=== PATIENT | female | born 1995 | race Caucasian/White ===

== ENCOUNTER 2018-04-17 20:58 | Emergency (ER) | payer MEDICAID ==
[2018-04-17] MEDS ORDERED: NORMAL SALINE 1000 ML 1,000 ML IV ONE ×2 (22:15→23:43)
[2018-04-17 22:42] LABS: ABSOLUTE LYMPHOCYTES (AUTO) 0.9 10^3/uL (0.5-4.7); ABSOLUTE MONOCYTES (AUTO) 0.3 10^3/uL (0.1-1.4); ABSOLUTE NEUT (AUTO) 3.9 10^3/uL (1.7-8.2); BASOPHILS % (AUTO) 0.5 % (0-2); EOSINOPHILS % (AUTO) 0.2 % (0-6); HEMATOCRIT 40.6 % (36.0-47.0); HEMOGLOBIN 13.7 g/dL (12.0-15.5); LYMPHOCYTES % (AUTO) 17.9 % (13-45); MEAN CORPUSCULAR HEMOGLOBIN 26.6 pg (27.0-33.4); MEAN CORPUSCULAR HGB CONC 33.8 g/dL (32.0-36.0); MEAN CORPUSCULAR VOLUME 79 fl (80-97); MONOCYTES % (AUTO) 5.6 % (3-13); PLATELET COUNT 159 10^3/uL (150-450); RED BLOOD COUNT 5.16 10^6/uL (3.72-5.28); RED CELL DISTRIBUTION WIDTH 14.5 % (11.5-14.0); SEGMENTED NEUTROPHILS % (AUTO) 75.8 % (42-78); TOTAL CELLS COUNTED % (AUTO) 100 %; VENOUS BLOOD BASE EXCESS -3.5 mmol/L; VENOUS BLOOD HCO3 21.7 mmol/L (20-32); VENOUS BLOOD PCO2 39.8 mmHg (35-63); VENOUS BLOOD PH 7.36 (7.30-7.42); WHITE BLOOD COUNT 5.1 10^3/uL (4.0-10.5)
[2018-04-17] MEDS ORDERED: ONDANSETRON HCL INJ/PF 4 MG/2 ML SDV IV ONE (22:50)
--- NOTE | 2018-04-17 22:50 | ER Document Report ---
ED General - General Chief Complaint: High Blood Sugar Stated Complaint: BLOOD SUGAR PROBLEM Time Seen by Provider: 04/17/18 22:14 TRAVEL OUTSIDE OF THE [place] IN LAST 30 DAYS: No - HPI Patient complains to provider of: Elevated blood sugars Notes: Patient coming in for evaluation of elevated blood sugars concerned about DKA. Patient with type I diabetic most of her life currently has insulin pump. Patient states she is change her site in the last 48 hours twice. Patient sta mal that her unit automatically boluses are patient states feeling slightly nauseous also has issues with dental caries in the past. Patient states no vomiting no diarrhea no recent antibiotics. Patient does not have any primary care here in [place] is that she recently moved. Patient otherwise looks to be nontoxic upon my evaluation. - Related Data Allergies/Adverse Reactions: No Known Allergies Allergy (Unverified 04/17/18 21:02) Past Medical History - Social History Smoking Status: Unknown if Ever Smoked Family History: Reviewed & Not Pertinent Endocrine Medical History: Reports: Hx Diabetes Mellitus Type 1 Review of Systems - Review of Systems Constitutional: No symptoms reported EENT: No symptoms reported Cardiovascular: No symptoms reported Respiratory: No symptoms reported Gastrointestinal: Nausea - Elevated blood sugar Genitourinary: No symptoms reported Female Genitourinary: No symptoms reported Musculoskeletal: No symptoms reported Skin: No symptoms reported Hematologic/Lymphatic: No symptoms reported Neurological/Psychological: No symptoms reported -: Yes All other systems reviewed and negative Physical Exam - Vital signs Vitals: Temp Pulse Resp BP Pulse Ox 100.0 F 136 H 16 123/71 98 04/17/18 21:28 04/17/18 21:28 04/17/18 21:28 04/17/18 21:28 04/17/18 21:28 Interpretation: Normal - General General appearance: Appears well, Alert - HEENT Head: Normocephalic, Atraumatic Eyes: Normal Conjunctiva: Normal Cornea: Normal Pupils: PERRL Ears: Normal External canal: Normal Tympanic membrane: Normal Sinus: Normal Pharynx: Normal Neck: Normal Notes: Patient with gingival cellulitis of tooth #17 with a dental caries - Respiratory Respiratory status: No respiratory distress Chest status: Nontender Breath sounds: Normal Chest palpation: Normal - Cardiovascular Rhythm: Regular Heart sounds: Normal auscultation Murmur: No - Abdominal Inspection: Normal Distension: No distension Bowel sounds: Normal Tenderness: Nontender Organomegaly: No organomegaly - Back Back: Normal, Nontender - Extremities General upper extremity: Normal inspection, Nontender, Normal color, Normal ROM, Normal temperature General lower extremity: Normal inspection, Nontender, Normal color, Normal ROM, Normal temperature, Normal weight bearing. No: Shonda's sign - Neurological Neuro grossly intact: Yes Cognition: Normal Orientation: AAOx4 [place] Coma Scale Eye Opening: Spontaneous [place] Coma Scale Verbal: Oriented [place] Coma Scale Motor: Obeys Commands [place] Coma Scale Total: 15 Speech: Normal Motor strength normal: LUE, RUE, LLE, RLE Sensory: Normal - Psychological Associated symptoms: Normal affect, Normal mood - Skin Skin Temperature: Warm Skin Moisture: Dry Skin Color: Normal Course - Re-evaluation Re-evalutation: 04/17/18 22:50 Vital signs show tachycardia. Physical examination is not related event. Patient otherwise looks to be no obvious distress. Did evaluate the site of the patient's diabetic insulin pump which looks to be well-healed no signs of infection. Will check basic laboratory studies 04/18/18 01:13 Patient tachycardia improved with IV fluids laboratory studies shows signs of dehydration and possible UTI. Examination of the patient's oral cavity also reveals some developing gingival cellulitis no abscess formation. Because tachycardia and recent travel initially a d-dimer was performed which did come back elevated. CTA returned negative for PE. Patient sugars are now normalized. She will be started on Keflex for urine and for her dental disease patient will be given dental resources to follow-up with. Patient will be discharged home. - Vital Signs Vital signs: Temp Pulse Resp BP Pulse Ox 100.1 F 136 H 21 H 131/81 H 100 04/17/18 23:40 04/17/18 21:28 04/18/18 01:01 04/18/18 01:00 04/18/18 01:01 - Laboratory Result Diagrams: 04/17/18 22:33 04/17/18 22:33 Laboratory results interpreted by me: 04/17/18 04/17/18 04/17/18 22:24 22:33 22:33 MCV 79 L MCH 26.6 L RDW 14.5 H D-Dimer Creatinine 0.46 L Glucose 234 H POC Glucose 239 H Urine Protein Urine Glucose (UA) Urine Ketones Ur Leukocyte Esterase Urine Ascorbic Acid 04/17/18 04/17/18 04/18/18 22:33 22:55 00:36 MCV MCH RDW D-Dimer 0.99 H Creatinine Glucose POC Glucose 154 H Urine Protein 100 H Urine Glucose (UA) >=500 H Urine Ketones 80 H Ur Leukocyte Esterase LARGE H Urine Ascorbic Acid 40 H Discharge - Discharge Clinical Impression: Diabetes type I, Tachycardia, Dehydration, UTI (urinary tract infection), Dental caries Condition: Good Instructions: Cephalexin ([facility]), Dentist, Dental Infection or Abscess ([facility]), Diabetes ([facility]), Family Physicians / Practices, Urinary Tract Infection ([facility]) Additional Instructions: Your laboratory studies show signs of possible urinary tract infection along with a dental infection. I will highly recommend that you follow-up along the primary care physicians listed as at being new to the area you would need a good family doctor to also help control your diabetes and also set up follow-up with investigator. I would also recommend following up with the dentist provided the antibiotic that we will give you treat urinary tract infection will also help with your dental infection. Would recommend rinsing after each meal with water or Listerine return to ER symptoms worsen follow-up with primary care physician. Prescriptions: Cephalexin Monohydrate [Keflex 500 mg Capsule] 500 mg PO Q6H 10 Days capsule Ondansetron HCl [Zofran 4 mg Tablet] 1 - 2 tab PO Q6 #30 tablet Forms: Return to Work
[2018-04-17 22:57] LABS: ALANINE AMINOTRANSFERASE 18 U/L (9-52); ALBUMIN 4.2 g/dL (3.5-5.0); ALKALINE PHOSPHATASE 118 U/L (38-126); ANION GAP 15 (5-19); ASPARTATE AMINO TRANSFERASE 17 U/L (14-36); BILIRUBIN,DIRECT 0.1 mg/dL (0.0-0.4); BILIRUBIN,TOTAL 0.5 mg/dL (0.2-1.3); BLOOD UREA NITROGEN 9 mg/dL (7-20); CALCIUM 9.3 mg/dL (8.4-10.2); CARBON DIOXIDE 22 mmol/L (22-30); CHLORIDE 101 mmol/L (98-107); GLUCOSE 234 mg/dL (75-110); LIPASE 29.9 U/L (23-300); POTASSIUM 3.9 mmol/L (3.6-5.0); SODIUM 137.9 mmol/L (137-145); TOTAL PROTEIN 7.4 g/dL (6.3-8.2)
[2018-04-17 23:37] LABS: A TYPE INFLUENZA AG NEGATIVE (NEGATIVE); APPEARANCE,URINE SLIGHTLY-CLOUDY; B INFLUENZA AG NEGATIVE (NEGATIVE); BILIRUBIN,URINE NEGATIVE (NEGATIVE); COLOR,URINE YELLOW; GLUCOSE, URINE >=500 mg/dL (NEGATIVE); KETONES,URINE 80 mg/dL (NEGATIVE); LEUKOCYTE ESTERASE,URINE LARGE (NEGATIVE); NITRITE,URINE NEGATIVE (NEGATIVE); PROTEIN,URINE 100 mg/dL (NEGATIVE); URINE SPECIFIC GRAVITY 1.036; UROBILINOGEN,URINE NEGATIVE mg/dL (<2.0)
[2018-04-17] MEDS ORDERED: CEFTRIAXONE 1 GM/D5W RTU 1 GM/50 ML RTUPB IV ONE (23:53)
--- NOTE | 2018-04-18 00:55 | RADIOLOGY REPORT (SQ) ---
EXAM DESCRIPTION: CT CHEST ANGIOGRAPHY WITHOUT THEN WITH IV CONTRAST COMPLETED DATE/TME: 04/18/2018 00:00 CLINICAL HISTORY: 22 years, Female, tachy elevated d dimer COMPARISON: None. TECHNIQUE: Axial images through the chest were performed after the administration of intravenous contrast using a pulmonary embolus protocol. MIPS were performed. This exam was performed according to our departmental dose-optimization program which includes use of Automated Exposure Control, adjustment of the mA and/or kV according to patient size and/or use of iterative reconstruction technique. FINDINGS: No pulmonary embolus is identified. Normal caliber aorta without dissection. No pericardial effusion. Cardiac chambers are normal in size. No pleural effusion. No focal lung consolidation. No pneumothorax. Patent central airway. Soft tissues are unremarkable. No acute osseous findings. No acute abnormality within the visualized upper abdomen. IMPRESSION: No pulmonary embolus.
[2018-04-18 02:23] VITALS: BP 116/77
--- NOTE | 2018-04-18 22:19 | EKG REPORT ---
SEVERITY:- OTHERWISE NORMAL ECG - SINUS TACHYCARDIA : Confirmed by: Dutch Brown 18-Apr-2018 22:18:41
== END 2018-04-18 02:00 | disposition home or self-care (01) ==
LOC: ER 20:58
DX: E10.65 Type 1 diabetes mellitus with hyperglycemia (principal); Z96.41 Presence of insulin pump (external) (internal); K02.9 Dental caries, unspecified; K12.2 Cellulitis and abscess of mouth; N39.0 Urinary tract infection, site not specified; E86.0 Dehydration; R11.0 Nausea; R00.0 Tachycardia, unspecified; R74.8 Abnormal levels of other serum enzymes
CPT/HCPCS: 93005; 99285; 96361; 96375; 96365; 36415; 82962; 84702; 83690; 85025; 80053; 81001; 85379; 82803; 87804; 71275; 93010; J2405; J7030 ×2; J0696

== ENCOUNTER → 2018-08-14 | Outpatient (CLI) | payer MEDICAID ==
[2018-08-14 15:27] LABS: ABSOLUTE EOSINOPHILS # (AUTO) 0.1 10^3/uL (0.0-0.6); ABSOLUTE LYMPHOCYTES (AUTO) 2.1 10^3/uL (0.5-4.7); ABSOLUTE MONOCYTES (AUTO) 0.3 10^3/uL (0.1-1.4); ABSOLUTE NEUT (AUTO) 2.5 10^3/uL (1.7-8.2); BASOPHILS % (AUTO) 0.6 % (0-2); EOSINOPHILS % (AUTO) 1.4 % (0-6); HEMATOCRIT 39.7 % (36.0-47.0); HEMOGLOBIN 13.3 g/dL (12.0-15.5); MEAN CORPUSCULAR HEMOGLOBIN 26.4 pg (27.0-33.4); MEAN CORPUSCULAR HGB CONC 33.5 g/dL (32.0-36.0); MEAN CORPUSCULAR VOLUME 79 fl (80-97); MONOCYTES % (AUTO) 6.5 % (3-13); PLATELET COUNT 178 10^3/uL (150-450); RED BLOOD COUNT 5.03 10^6/uL (3.72-5.28); RED CELL DISTRIBUTION WIDTH 15.3 % (11.5-14.0); SEGMENTED NEUTROPHILS % (AUTO) 49.5 % (42-78); TOTAL CELLS COUNTED % (AUTO) 100 %
[2018-08-14 15:50] LABS: ALANINE AMINOTRANSFERASE 18 U/L (9-52); ALBUMIN 4.2 g/dL (3.5-5.0); ALKALINE PHOSPHATASE 99 U/L (38-126); ANION GAP 10 (5-19); ASPARTATE AMINO TRANSFERASE 18 U/L (14-36); BILIRUBIN,DIRECT 0.2 mg/dL (0.0-0.4); BILIRUBIN,TOTAL 0.4 mg/dL (0.2-1.3); BLOOD UREA NITROGEN 8 mg/dL (7-20); CALCIUM 9.5 mg/dL (8.4-10.2); CARBON DIOXIDE 24 mmol/L (22-30); CHLORIDE 106 mmol/L (98-107); GLUCOSE 172 mg/dL (75-110); POTASSIUM 4.3 mmol/L (3.6-5.0); SODIUM 140.4 mmol/L (137-145); TOTAL PROTEIN 7.4 g/dL (6.3-8.2); TRIGLYCERIDES 70 mg/dL (<150)
[2018-08-14 16:01] LABS: DIRECT LDL 70 mg/dL (<100)
[2018-08-16 11:38] LABS: CREATININE URINE 286.1 mg/dL (Not Estab.); MICROALBUMIN URINE 301.6 ug/mL (Not Estab.)
== END ==
LOC: LAB 14:52
PROVIDERS: ATTEND Family Medicine Geriatric Medicine
DX: E10.9 Type 1 diabetes mellitus without complications (principal); Z79.899 Other long term (current) drug therapy
CPT/HCPCS: 36415; 80053; 80061; 82043; 82570; 83036; 84443; 85025

== ENCOUNTER 2018-09-14 09:36 | Emergency (ER) | payer MEDICAID ==
[2018-09-14] MEDS ORDERED: NORMAL SALINE 500 ML IV ONE (09:47)
--- NOTE | 2018-09-14 10:00 | ER Document Report ---
ED General - General Stated Complaint: FACIAL DROOP Time Seen by Provider: 09/14/18 09:46 Primary Care Provider: SEVERO GARCIA MD [Primary Care Provider] - Follow up as needed TRAVEL OUTSIDE OF THE [place] IN LAST 30 DAYS: No - HPI Notes: Patient is a 23-year-old female who presents emergency department for evaluation of facial numbness and droop. She states she woke up at approximately 4 PM yesterday afternoon. She noted numbness and tingling to the left side of her face. Seems to be worsened today. She notes difficulty smiling. She denies any pain. No visual changes. No recent head injuries. No numbness or tingling of the arms or legs. No difficulty seeing, speaking, swallowing. Walking without abnormality. She has no pain. The patient has a history of diabetes. She has an insulin pump in place. She states she has a follow-up with endocrinology, she was recently admitted to the hospital with DKA. - Related Data Allergies/Adverse Reactions: No Known Allergies Allergy (Unverified 04/17/18 21:02) Past Medical History - General Information source: Patient - Social History Smoking Status: Never Smoker Frequency of alcohol use: None Drug Abuse: None Family History: Reviewed & Not Pertinent, DM Endocrine Medical History: Reports: Hx Diabetes Mellitus Type 1 Renal/ Medical History: Denies: Hx Peritoneal Dialysis Review of Systems - Review of Systems Constitutional: No symptoms reported EENT: No symptoms reported Cardiovascular: No symptoms reported Respiratory: No symptoms reported Gastrointestinal: No symptoms reported Genitourinary: No symptoms reported Musculoskeletal: No symptoms reported Skin: No symptoms reported Neurological/Psychological: See HPI Physical Exam - Vital signs Vitals: Temp Pulse Resp BP Pulse Ox 98.0 F 112 H 16 112/72 99 09/14/18 10:03 09/14/18 10:03 09/14/18 10:03 09/14/18 10:03 09/14/18 10:03 - Notes Notes: Vital signs reviewed, please refer to chart. Head is normocephalic, atraumatic. Pupils equal round, reactive to light. Neck is supple without meningismus. Heart is regular rate and rhythm. Lungs are clear to auscultation bilaterally. Abdomen is soft, nontender, normoactive bowel sounds throughout. Extremities without cyanosis, clubbing. Posterior calves are nontender. Peripheral pulses are equal. Skin is warm and dry. Patient is awake, alert, oriented x3. Patient was obvious facial nerve palsy on the left. She has diminished nasolabial fold, weakness and smile. She is unable to raise her right eyebrow. Patient also has diminished sensation to the left side of the face globally to light touch. Remainder of cranial nerves II through XII are grossly intact without focal neurological deficits. Strength is plus 5 out of 5 bilateral u pper and lower extremities. Sensation is intact. Reflexes symmetrical. Intact [id number], rapid alternating movements, [id number]. Course - Re-evaluation Re-evalutation: 09/14/18 09:57 Patient presents to the emergency department for evaluation. 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 She has no other neurological deficits. Unfortunately she is not a candidate for steroids. In any case, her blood glu cose is markedly elevated. She was recently admitted for DKA. We will go ahead and check some basic blood work, give IV fluids. We will continue to monitor. 09/14/18 11:26 Laboratory investigations did reveal significant hyperglycemia. She has no anion gap, no significant acidosis. She really has a pending appointment with endocrinology. Patient does not fact have a clear Escobedo's palsy. Unfortunately she is not a candidate for steroids given her poor glucose control. There is no utility in the treatment of Escobedo's with antivirals without the addition of steroids. Patient is told that she will need to protect her left eye. She is given instructions on lubrication. She is to follow-up with primary care, return to the ED with worsening or new concerning symptoms of any sort. - Vital Signs Vital signs: Temp Pulse Resp BP Pulse Ox 98.0 F 112 H 16 112/72 99 09/14/18 10:03 09/14/18 10:03 09/14/18 10:03 09/14/18 10:03 09/14/18 10:03 - Laboratory Result Diagrams: 09/14/18 09:45 09/14/18 09:45 Laboratory results interpreted by me: 09/14/18 09/14/18 09/14/18 09:45 09:45 09:48 Hgb 10.0 L Hct 30.5 L MCH 26.7 L RDW 16.3 H Sodium 135.9 L Creatinine 0.40 L Glucose 363 H POC Glucose 351 H AST 39 H Discharge - Discharge Clinical Impression: Escobedo palsy Condition: Stable Disposition: HOME, SELF-CARE Instructions: Escobedo's Palsy ([facility]) Additional Instructions: You will need to protect her left eye from injury, being dried out by being unable to close her eye. Try lubricant eyedrops. Follow-up with your primary care provider next week. If you develop increased pain, fevers, difficulty seeing, speaking, swallowing, difficulty moving your arms or legs, or any other new or concerning symptoms, return immediately to the emergency department for reevaluation. Referrals: SEVERO GARCIA MD [Primary Care Provider] - Follow up as needed
[2018-09-14 10:09] LABS: ABSOLUTE EOSINOPHILS # (AUTO) 0.1 10^3/uL (0.0-0.6); ABSOLUTE LYMPHOCYTES (AUTO) 2.4 10^3/uL (0.5-4.7); ABSOLUTE MONOCYTES (AUTO) 0.4 10^3/uL (0.1-1.4); ABSOLUTE NEUT (AUTO) 3.2 10^3/uL (1.7-8.2); BASOPHILS % (AUTO) 0.8 % (0-2); EOSINOPHILS % (AUTO) 1.2 % (0-6); HEMATOCRIT 30.5 % (36.0-47.0); MEAN CORPUSCULAR HEMOGLOBIN 26.7 pg (27.0-33.4); MEAN CORPUSCULAR HGB CONC 32.8 g/dL (32.0-36.0); MEAN CORPUSCULAR VOLUME 81 fl (80-97); PLATELET COUNT 352 10^3/uL (150-450); RED BLOOD COUNT 3.75 10^6/uL (3.72-5.28); RED CELL DISTRIBUTION WIDTH 16.3 % (11.5-14.0); TOTAL CELLS COUNTED % (AUTO) 100 %; WHITE BLOOD COUNT 6.1 10^3/uL (4.0-10.5)
[2018-09-14 10:16] LABS: ALANINE AMINOTRANSFERASE 34 U/L (9-52); ALBUMIN 3.6 g/dL (3.5-5.0); ALKALINE PHOSPHATASE 96 U/L (38-126); ANION GAP 7 (5-19); ASPARTATE AMINO TRANSFERASE 39 U/L (14-36); BILIRUBIN,DIRECT 0.3 mg/dL (0.0-0.4); BILIRUBIN,TOTAL 0.4 mg/dL (0.2-1.3); BLOOD UREA NITROGEN 14 mg/dL (7-20); CALCIUM 9.5 mg/dL (8.4-10.2); CARBON DIOXIDE 26 mmol/L (22-30); CHLORIDE 103 mmol/L (98-107); GLUCOSE 363 mg/dL (75-110); POTASSIUM 4.8 mmol/L (3.6-5.0); TOTAL PROTEIN 6.3 g/dL (6.3-8.2)
[2018-09-14 12:40] VITALS: BP 112/67
== END 2018-09-14 12:40 | disposition home or self-care (01) ==
LOC: ER 09:36
DX: G51.0 Bell's palsy (principal); E10.65 Type 1 diabetes mellitus with hyperglycemia; Z96.41 Presence of insulin pump (external) (internal)
CPT/HCPCS: 99284; 96360; 36415; 82962; 84703; 85025; 80053; J7040

== ENCOUNTER → 2018-10-09 | Outpatient (CLI) | payer MEDICAID ==
[2018-10-09 16:50] LABS: ABSOLUTE EOSINOPHILS # (AUTO) 0.1 10^3/uL (0.0-0.6); ABSOLUTE LYMPHOCYTES (AUTO) 2.1 10^3/uL (0.5-4.7); ABSOLUTE MONOCYTES (AUTO) 0.3 10^3/uL (0.1-1.4); ABSOLUTE NEUT (AUTO) 2.2 10^3/uL (1.7-8.2); BASOPHILS % (AUTO) 0.9 % (0-2); EOSINOPHILS % (AUTO) 1.7 % (0-6); HEMATOCRIT 35.5 % (36.0-47.0); HEMOGLOBIN 11.7 g/dL (12.0-15.5); LYMPHOCYTES % (AUTO) 44.8 % (13-45); MEAN CORPUSCULAR HEMOGLOBIN 25.4 pg (27.0-33.4); MEAN CORPUSCULAR HGB CONC 32.9 g/dL (32.0-36.0); MONOCYTES % (AUTO) 6.4 % (3-13); PLATELET COUNT 285 10^3/uL (150-450); RED BLOOD COUNT 4.59 10^6/uL (3.72-5.28); SEGMENTED NEUTROPHILS % (AUTO) 46.2 % (42-78); TOTAL CELLS COUNTED % (AUTO) 100 %; WHITE BLOOD COUNT 4.8 10^3/uL (4.0-10.5)
[2018-10-09 17:17] LABS: ALBUMIN 4.1 g/dL (3.5-5.0); ALKALINE PHOSPHATASE 98 U/L (38-126); ANION GAP 8 (5-19); ASPARTATE AMINO TRANSFERASE 19 U/L (14-36); BILIRUBIN,DIRECT 0.3 mg/dL (0.0-0.4); BILIRUBIN,TOTAL 0.4 mg/dL (0.2-1.3); BLOOD UREA NITROGEN 12 mg/dL (7-20); CALCIUM 9.6 mg/dL (8.4-10.2); CARBON DIOXIDE 27 mmol/L (22-30); CHLORIDE 103 mmol/L (98-107); GLUCOSE 113 mg/dL (75-110); POTASSIUM 3.8 mmol/L (3.6-5.0); TOTAL PROTEIN 7.3 g/dL (6.3-8.2)
[2018-10-09 17:18] LABS: MEAN CORPUSCULAR VOLUME 77 fl (80-97)
== END ==
LOC: LAB 16:33
PROVIDERS: ATTEND Family Medicine Geriatric Medicine
DX: E10.9 Type 1 diabetes mellitus without complications (principal); D64.9 Anemia, unspecified; E87.6 Hypokalemia; Z79.899 Other long term (current) drug therapy
CPT/HCPCS: 36415; 80053; 83735; 85025

== ENCOUNTER → 2018-11-25 | Outpatient (CLI) | payer MEDICAID ==
[2018-11-25 16:58] LABS: ABSOLUTE EOSINOPHILS # (AUTO) 0.1 10^3/uL (0.0-0.6); ABSOLUTE LYMPHOCYTES (AUTO) 2.2 10^3/uL (0.5-4.7); ABSOLUTE MONOCYTES (AUTO) 0.4 10^3/uL (0.1-1.4); ABSOLUTE NEUT (AUTO) 3.1 10^3/uL (1.7-8.2); BASOPHILS % (AUTO) 0.4 % (0-2); EOSINOPHILS % (AUTO) 1.4 % (0-6); HEMATOCRIT 37.5 % (36.0-47.0); HEMOGLOBIN 12.2 g/dL (12.0-15.5); LYMPHOCYTES % (AUTO) 37.3 % (13-45); MEAN CORPUSCULAR HEMOGLOBIN 25.1 pg (27.0-33.4); MEAN CORPUSCULAR HGB CONC 32.4 g/dL (32.0-36.0); MEAN CORPUSCULAR VOLUME 77 fl (80-97); MONOCYTES % (AUTO) 6.9 % (3-13); PLATELET COUNT 224 10^3/uL (150-450); RED BLOOD COUNT 4.86 10^6/uL (3.72-5.28); TOTAL CELLS COUNTED % (AUTO) 100 %; WHITE BLOOD COUNT 5.8 10^3/uL (4.0-10.5)
[2018-11-27 13:37] LABS: CREATININE URINE 144.7 mg/dL (Not Estab.); MICROALBUMIN URINE 48.5 ug/mL (Not Estab.)
== END ==
LOC: LAB 16:30
PROVIDERS: ATTEND Family Medicine Geriatric Medicine
DX: D50.9 Iron deficiency anemia, unspecified (principal); E87.6 Hypokalemia; Z79.899 Other long term (current) drug therapy
CPT/HCPCS: 36415; 82043; 82570; 83036; 85025